=== PATIENT | female | born 1995 | race African-American/Black ===

== ENCOUNTER 2019-01-03 13:39 | Emergency (ER) | payer BC ==
--- NOTE | 2019-01-03 14:38 | EDM.PDOC ---
ED HPI GENERAL MEDICAL PROBLEM - General Chief Complaint: Chest Pain Stated Complaint: CHEST PAIN Time Seen by Provider: 01/03/19 14:00 Source of Information: Reports: Patient History Limitations: Reports: No Limitations - History of Present Illness INITIAL COMMENTS - FREE TEXT/NARRATIVE: Patient is a very pleasant 26-year-old female originally [place] of [place] who presents today with concern for chest pain which has been going on over the past 1-2 weeks. She describes the pain as sharp, central sternally and worse when she lies back. It hurts every time she takes a deep breath. She has not noticed any other symptoms along with it such as nausea, sweating or dizziness. Occasionally she feels weak all over like she might pass out, but this is not consistent with every time. It is much worse whenever she lifts anything. She does not generally exert much during the day, so is not certain if it changes with exercise. She has not tried anything for the pain. Past medical history is unremarkable except for migraine headaches and nexplanon implant. She reports that her migraines have been fairly significant recently, sometimes lasting up to few days where she will feel dizzy, lightheaded and weak and very sensitive to light, needed to lay down in a dark room. No known family history of sudden cardiac or otherwise unexplained before age of 50. Did not play sports in school or participate in any other organized physical activity. 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 She works 8 hour days, getting approximately a 10 minute break every 2 hours and a 20 minute break for lunch in the middle of the day. She states that she was off over the December hol and this seemed to help her chest pain, but after she resumed her position on Monday it worsened and she had to take a personal day yesterday. 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 ED EXAM, GENERAL - Physical Exam Exam: See Below Free Text/Narrative:: General: Alert, very pleasant no acute distress. Head is atraumatic.. Intermittent membranes are clear bilaterally with normal light reflex and no air -fluid level is noted. Pupils are equal and reactive conjunctivae are clear. Throat is without erythema, mucous murmurs are moist there is no tonsillar enlargement states. No cervical lymphadenopathy. Lungs are clear throughout with no wheezes or crackles and heart is regular rate and rhythm with prominent physiologic S1S2 split but I do not hear a murmur. Ribs and chest exam shows she is extremely tender over all of the anterior chest wall muscles and acutely tender over the costovertebral joints. She has no midline sternal tenderness. Abdominal exam shows positive bowel sounds, soft nondistended nontender with no rebound or guarding. Peripheral pulses are +2 in both the upper and lower extremity there is no lower extremity edema. She has equal strength [id number] , facial muscles are symmetric and gait is normal. EKG INTERPRETATION Rhythm: NSR [place]: Normal P-Wave: Present QRS: Normal ST-T: Normal QT: Normal Comparison: NA - No Prior EKG Course - Vital Signs Text/Narrative:: Based on initial history, suspects she might be mildly hypovolemic because she has not generally been taking in a lot of fluids during the day, is having some occasional episodes of presyncope. Significant trouble with migraines which is long-standing. I suspect her chest pain is primarily mechanical from the change in her 3 weeks ago. Her EKG does not show any abnormalities. She is from [place] originally so will get CBC to screen for anemia, check orthostatics and chest x-ray as well. Last Recorded V/S: Last Vital Signs Temp 36.7 C 01/03/19 13:39 Pulse 90 01/03/19 13:39 Resp 18 01/03/19 13:39 BP 111/60 01/03/19 13:39 Pulse Ox 100 01/03/19 13:39 Orthostatic Blood Pressure [ 108/56 Standing] Orthostatic Blood Pressure [ 104/55 Sitting] Orthostatic Blood Pressure [ 98/49 Supine] - Orders/Labs/Meds Orders: Active Orders 24 hr Category Date Time Status Chest 2V [CR] Stat Exams 01/03/19 14:30 Taken Labs: Laboratory Tests 01/03/19 01/03/19 01/03/19 Range/Units 14:55 14:55 15:40 WBC 7.0 (4.5-12.0) X10-3/uL RBC 5.01 (3.23-5.20) x10(6)uL Hgb 13.6 (11.5-15.5) g/dL Hct 41.2 (30.0-51.3) % MCV 82.2 (80-96) fL MCH 27.1 L (27.7-33.6) pg MCHC 32.9 (32.2-35.4) g/dL RDW 13.7 (11.5-15.5) % Plt Count 243 (125-369) X10(3)uL MPV 8.6 (7.4-10.4) fL Neut % (Auto) 51.8 (46-82) % Lymph % (Auto) 34.2 (13-37) % [place] % (Auto) 6.9 (4-12) % Eos % (Auto) 6 H (1.0-5.0) % Baso % (Auto) 1 (0-2) % Neut # (Auto) 3.6 (1.6-8.3) # Lymph # (Auto) 2.4 (0.6-5.0) # [place] # (Auto) 0.5 (0.0-1.3) # Eos # (Auto) 0.5 (0.0-0.8) # Baso # (Auto) 0.0 (0.0-0.2) # Sodium 143 (135-145) mmol/L Potassium 3.7 (3.5-5.3) mmol/L Chloride 107 (100-110) mmol/L Carbon Dioxide 26 (21-32) mmol/L BUN 23 H (7-18) mg/dL Creatinine 0.7 (0.55-1.02) mg/dL Est Cr Clr Drug Dosing 132.00 mL/min Estimated GFR (MDRD) > 60 (>60) BUN/Creatinine Ratio 32.9 H (9-20) Glucose 71 L (80-116) mg/dL Calcium 9.1 (8.6-10.2) mg/dL Urine Color Yellow (YELLOW) Urine Appearance Clear (CLEAR) Urine pH 7.0 H (5.0-6.5) Ur Specific [place] 1.015 (1.010-1.025) Urine Protein Negative (NEGATIVE) mg/dL Urine Glucose (UA) Normal (NORMAL) mg/dL Urine Ketones Negative (NEGATIVE) mg/dL Urine Occult Blood Large H (NEGATIVE) Urine Nitrite Negative (NEGATIVE) Urine Bilirubin Negative (NEGATIVE) Urine Urobilinogen Normal (NEGATIVE) mg/dL Ur Leukocyte Esterase Negative (NEGATIVE) Urine RBC 5-10 H (0-5) Urine WBC 0-5 (0-5) Ur Squamous Epith Cells Occasional (NS,R,O) Urine Bacteria Few H (NS) - Re-Assessments/Exams Free Text/Narrative Re-Assessment/Exam: 01/03/19 labs, imaging, orthostatics reviewed. Probably slightly dehydrated but no other abnormalities noted. Discussed probable diagnosis of acute costochondritis with patient and her mom who is now present, based on clinical exam I think this is the most likely cause of her pain. Note provided for work, discussed follow-up with a PCP in [facility] and use of [id number] analgesics and modification of activity. She would benefit greatly from physical therapy. Considered possibly doing a steroid burst, however I would prefer that she have her activity changed and have not improved with NSAIDS prior to using a slightly higher risk medication They were in agreement with this plan and all questions were answered Departure - Departure Time of Disposition: 16:30 Disposition: Home, Self-Care 01 Condition: Good Clinical Impression: Costochondritis, acute - Discharge Information *PRESCRIPTION DRUG MONITORING PROGRAM REVIEWED*: Not Applicable *COPY OF PRESCRIPTION DRUG MONITORING REPORT IN PATIENT JOSHUA: Not Applicable Instructions: Costochondritis Referrals: PCP,None [Primary Care Provider] - Forms: ED Department Discharge Additional Instructions: Migraine headache at-home treatment: 800mg ibuprofen + a cup of tea or something with caffeine. Alternately may take Excedrin migraine AND 50mg (2 tabs) benadryl AND drink 4 or more 8oz glasses of water THEN lie down in a dark room for a while and focus on getting all muscles to relax, starting in face and head, then neck, then arms, chest, abdomen, legs, feet. If can picture a soothing place sometimes this is also helpful Chest pain most likely coming from: costochondritis Tests run today (to show next doctor): nl EKG, CXR, CBC, BMP/lytes. Orthostatics - BP unchanged but heart rate increased suggesting hypovolemia, no symptoms. Urine: blood (suspect vaginal), no signs infection may benefit from steroid burst once work activity is modified followup- appointment at [facility] For rib/chest wall pain: can use heat, ice, any kind of topical rub, whatever makes it feel better LOTS of water can use Aleve (per bottle instructions) OR Ibuprofen 3-4 tabs up to three times per day should not take both of these, just choose whichever you have or seems to work better. use for 3-4 days for symptoms to improve, and hopefully will be able to see doctor by then and get into some physical therapy. it will probably take a month or so to resolve completely, and at this point activity modification will be the most important. Take very good care, - My Orders Last 24 Hours: My Active Orders 01/03/19 14:30 Chest 2V [CR] Stat - Assessment/Plan Last 24 Hours: My Active Orders 01/03/19 14:30 Chest 2V [CR] Stat
--- NOTE | 2019-01-04 09:12 | CR ---
INDICATION: Chest pain, bilateral upper anterior chest. CHEST: PA and lateral views of the chest, 01/03/19 - no comparisons. Overlying EKG leads are noted. The heart and mediastinum were unremarkable. A moderate dextroconcave scoliosis of the upper thoracic spine is noted. An active infiltrate or effusion was not identified. Probable granuloma is noted, perihilar on the left. IMPRESSION: No acute process. MTDD
== END 2019-01-03 16:30 | disposition home or self-care (01) ==
LOC: FB.ED 13:39
DX: M94.0 Chondrocostal junction syndrome [Tietze] (principal)
CPT/HCPCS: 36415; 71046; 80048; 81001; 85025; 99284-25